=== PATIENT | female | born 1985 ===

== ENCOUNTER 2023-03-25 19:23 | Emergency (ER) | payer OTHER ==
[~2023-03-25] VITALS: Ht 160 cm; Wt 83.9 kg
[2023-03-25] MEDS ORDERED: ZOLOFT100 MG PO (19:33)
[2023-03-25] MEDS ORDERED: ZYRTEC10 M3 (19:33)
== END 2023-03-25 22:29 | disposition home or self-care (01) ==
LOC: ER 19:23
DX: R10.9 Unspecified abdominal pain (principal)